=== PATIENT | female | born 1995 | race Caucasian/White ===

== ENCOUNTER 2020-01-15 06:19 | Outpatient (CLI) | payer OTHER | END 2020-01-15 06:26 | disposition home or self-care (01) | LOC: LAB 06:19 | DX: D64.89 Other specified anemias (principal); N39.0 Urinary tract infection, site not specified; E03.8 Other specified hypothyroidism; E78.49 Other hyperlipidemia; E11.9 Type 2 diabetes mellitus without complications; D49.59 Neoplasm of unspecified behavior of other genitourinary organ; I10 Essential (primary) hypertension; M81.0 Age-related osteoporosis without current pathological fracture; Z12.11 Encounter for screening for malignant neoplasm of colon; M54.6 Pain in thoracic spine ==

== ENCOUNTER 2022-05-16 13:39 | Emergency (ER) | payer OTHER ==
[~2022-05-16] VITALS: Ht 167.6 cm; Wt 95.3 kg
[2022-05-16] MEDS ORDERED: MORGIDOX100 MG PO (14:19)
[2022-05-16] MEDS ORDERED: ALDACTONE100 MG PO (14:20)
== END 2022-05-16 19:35 | disposition home or self-care (01) ==
LOC: ER 13:39
DX: B34.9 Viral infection, unspecified (principal); J45.909 Unspecified asthma, uncomplicated